=== PATIENT | male | born 1940 | race Caucasian/White ===

== ENCOUNTER 2016-12-27 10:36 | Outpatient (CLI) | payer OTHER ==
--- NOTE | 2016-12-28 11:52 | OP Clinic Progress Note ---
REFERRING PHYSICIAN: Dr. Andre Parkinson REASON FOR VISIT: Mr. Klever Martin returns for follow up of idiopathic polyarthritis. He tells me he is doing well. He managed to stop his prednisone. He is presently taking Plaquenil 200 mg once a day. As I recall at presentation, his sedimentation rate was 98, CRP was 12.3, and negative serologies. PRESENT MEDICATIONS: 1. Hydrochlorothiazide 25 mg daily. 2. Atorvastatin 40 mg daily. 3. Potassium chloride 10 mEq daily. 4. Omeprazole 20 mg daily. 5. Trazodone 150 mg daily. 6. Formoterol fumarate 12 mcg daily. 7. Albuterol. 8. Asmanex. 9. Plaquenil 200 mg daily. REVIEW OF SYSTEMS: In review of systems, he has had no fevers, chills, sweats, chest pain, shortness of breath, cough, wheezing, nausea, vomiting, or diarrhea. He has had a little blurry vision, which has resolved. PHYSICAL EXAMINATION: GENERAL: He looks well and in no distress. VITAL SIGNS: Weight: 184. Height: 5 feet 6 inches. T: 96.7, R: 18, Heart rate 65, BP: 150/70. HEENT: Sclerae are anicteric. Conjunctivae are pink. No stomatitis or glossitis. LUNGS: Clear bilaterally with no crackles or wheezing. HEART: Regular rhythm. ABDOMEN: Soft and nontender. VASCULAR: No edema or cyanosis. No clubbing. PERIPHERAL JOINTS: The DIPs and PIPs show changes of OA. No synovitis at the MCPs, wrists, elbows, shoulders, hips, knees, ankles, and feet. IMPRESSION: 1. Idiopathic polyarthritis. 2. Probable seronegative rheumatoid arthritis (RA). PLAN: Continue Plaquenil 200 mg daily and I will see him back in 6 months. Thank you very much. cc: Dr. Andre RICK
== END 2016-12-27 10:37 ==
LOC: RHEU 10:36
PROVIDERS: ATTEND Internal Medicine
DX: M13.0 Polyarthritis, unspecified (principal)
CPT/HCPCS: 99214; G0463